=== PATIENT | male | born 1970 | race Caucasian/White ===

== ENCOUNTER 2019-10-06 13:25 | Inpatient (IN) | payer BC ==
[~2019-10-06 13:25] MED LIST: HYDROmorphone/Normal Saline 15 MG/30 ML PCA IV PRN; Naloxone 0.4 MG/ML SDV IVPUSH PRN
[2019-10-06] MEDS ORDERED: Dextrose 5%-Lactated Ringers 1,000 ML IV SCH ×2 (13:45)
[2019-10-06] MEDS ORDERED: ceFAZolin 2 GM in Premix Bag 1 BAG IV ONE (14:30)
[2019-10-06] MEDS ORDERED: metroNIDAZOLE/Normal Saline 500 MG in Premix Bag 1 BAG IV ONE (14:30)
[2019-10-06] MEDS: Sodium Chloride 0.9% 1,000 ML IV SCH ×2 (14:41→17:57)
[2019-10-06] MEDS ORDERED: fentaNYL 250 MCG/5 ML SDV ONE ×2 (14:52→15:31)
[2019-10-06] MEDS ORDERED: Dexamethasone 4 MG/ML SDV ONE (14:53)
[2019-10-06] MEDS ORDERED: Ondansetron 4 MG/2 ML SDV ONE (14:53)
[2019-10-06] MEDS ORDERED: Succinylcholine 200 MG/10 ML MDV ONE (14:53)
[2019-10-06] MEDS ORDERED: Glycopyrrolate 0.2 MG/ML 5 ML MDV ONE (14:53)
[2019-10-06] MEDS ORDERED: Neostigmine Methylsulfate 1 MG/ML 5 ML Syringe ONE (14:53)
[2019-10-06] MEDS ORDERED: Rocuronium 50 MG/5 ML Vial ONE (14:53)
[2019-10-06] MEDS ORDERED: Propofol 200 MG/20 ML SDV ONE (14:53)
[2019-10-06] MEDS ORDERED: Ropivacaine 36 ML, dexAMETHasone 8 MG, EPINEPHrine 0.4 MG, Sodium Chloride 0.9% 41.6 ML NERVRT SCH ×4 (15:00)
[2019-10-06] MEDS ORDERED: Albuterol/Ipratropium 3.0-0.5 MG/3 ML Neb Soln NEB ONE (15:00)
[2019-10-06] MEDS ORDERED: Scopolamine 1.5 MG Transdermal Patch ONE (15:30)
[2019-10-06] MEDS ORDERED: Ketorolac 60 MG/2 ML SDV ONE (15:30)
[2019-10-06] MEDS ORDERED: fentaNYL 100 MCG/2 ML SDV IVPUSH PRN (17:35)
[2019-10-06] MEDS: Acetaminophen/oxyCODONE 325-5 MG Tab PO PRN (17:56)
[2019-10-07] MEDS: Sodium Chloride 0.9% 1,000 ML IV SCH ×2 (06:25→18:33)
[2019-10-07] MEDS: Acetaminophen/oxyCODONE 325-5 MG Tab PO PRN ×2 (08:37→18:32)
[2019-10-08] MEDS: Acetaminophen/oxyCODONE 325-5 MG Tab PO PRN ×3 (05:07→19:39)
[2019-10-08] MEDS: Sodium Chloride 0.9% 1,000 ML IV SCH (07:20)
--- NOTE | 2019-10-08 10:06 | PN ---
DATE OF SERVICE: 10/08/2019 SUBJECTIVE: The patient is doing well. He is passing gas. No nausea, vomiting, shortness of breath, or chest pain. OBJECTIVE: VITAL SIGNS: Stable. GENERAL: He is afebrile. CARDIOVASCULAR: Regular rhythm and rate. RESPIRATORY: Lungs clear to auscultation bilaterally. ABDOMEN: Incision healing well. ASSESSMENT: Status post small bowel resection. PLAN: The patient is passing gas. We will give him some bowel stimulation today. No additional labs. Anticipate discharge in next 48 hours. Sree Morales MD /[id number]
[2019-10-08] MEDS: Magnesium Hydroxide 400 MG/5 ML Susp 30 ML Cup PO SCH ×2 (10:08→22:31)
[2019-10-08] MEDS: Nicotine 21 MG/24 Hr Patch TRDERM SCH (10:08)
[2019-10-08] MEDS: Docusate Sodium 100 MG Cap PO SCH ×2 (10:09→22:30)
--- NOTE | 2019-10-08 10:13 | CONS ---
DATE OF SERVICE: 10/06/2019 REFERRING PHYSICIAN: CONSULTING PHYSICIAN: Sree Morales MD REASON FOR CONSULTATION: Abdominal pain. HISTORY OF PRESENT ILLNESS: This is a patient who reports right and left upper abdominal pain which is a 4/10 worsening. This is associated with increased nausea. The patient's last bowel movement was yesterday. Modified by active smoking. PAST MEDICAL HISTORY: History of Rodriguez-en-Y gastric bypass, vitamin B deficiency, vitamin D deficiency, smoking as described above. REVIEW OF SYSTEMS: GENERAL: No specific concerns. RESPIRATORY: No recent shortness of breath. CARDIOVASCULAR: No history of myocardial infarction. GASTROINTESTINAL: As above. GENITOURINARY: No dysuria. NEUROLOGIC: No change. PSYCHIATRIC: No change. The remainder systems are reviewed and are negative. PHYSICAL EXAMINATION: GENERAL: The patient is appropriate for condition. VITAL SIGNS: Temperature 97.9, blood pressure 133/72, pulse 45, respirations 16, 98% on room air. GENERAL: The patient is resting comfortably. HEENT: Pupils are equal. NECK: Supple. LUNGS: Clear. ABDOMEN: Pain with palpation and moderate distention. No rebound. Minimal guarding. EXTREMITIES: Full range of motion. NEUROLOGIC: Oriented x3. PSYCHIATRIC: No gross depression. LABORATORY RESULTS: Show normal basic metabolic panel, normal hemogram. IMAGING DATA: I did review the CT scan which suggests an internal hernia. ASSESSMENT AND PLAN: The patient will be taken to the operating room for repair of internal hernia. The patient has had this repaired laparoscopically twice and obviously both have failed. Therefore, the patient will undergo an open internal hernia repair. We discussed risks, benefits, alternatives, and limitations including, but not limited to infection, bleeding, injury to abdominal structures, leaks, hematoma, seroma, hernia formation, cardiovascular issues, and other risks not listed here. The patient understands these risks and wishes to proceed. Sree Morales MD /[id number]
--- NOTE | 2019-10-08 10:19 | OR ---
DATE OF PROCEDURE: 10/06/2019 SURGEON: Sree Morales MD PROCEDURE: Rectus sheath block bilaterally. COMPLICATIONS: None. CHANCELLOR: None. RISKS: Risks, benefits, alternatives, and limitations including, but not limited to, infection, bleeding, and injury to abdominal structures were explained to the patient, who wished to proceed. PROCEDURE IN DETAIL: The patient was placed in supine position. Abdomen was prepped and draped. The left rectus sheath was identified using 11 megahertz ultrasound probe. The needle was advanced under direct visualization and 80% solution was injected directly inferior to the rectus muscle between the sheath. The right side was then performed in the same manner, same fashion, same technique, and in the same sequence, using the same equipment, except for different needle and syringe. The patient tolerated the procedure well. Sree Morales MD /[id number]
--- NOTE | 2019-10-08 10:35 | OR ---
DATE OF PROCEDURE: 10/06/2019 SURGEON: Sree Morales MD PROCEDURE: Repair of internal hernia by laparotomy (267151). COMPLICATION: None. TRAILER DRIVER: None. PREOPERATIVE DIAGNOSIS: Internal hernia. POSTOPERATIVE DIAGNOSIS: Internal hernia. INDICATIONS: A pleasant 49-year-old male who has had internal hernia repaired twice laparoscopic, therefore open will be required to repair this. Risks, benefits, alternatives, and limitations including, but not limited to, infection, bleeding, and injury to abdominal structures, hernia formation, cardiovascular risks, and other risks not listed here were explained to the patient. PROCEDURE IN DETAIL: The patient was placed in supine position. A midline abdominal incision was made approximately 8 cm in size. This was carried out with electrocautery down to the fascia. The peritoneum was opened sharply. No evidence of enterotomy or injury was noted. Small bowel was run in a retrograde fashion from the ileocecal valve. The internal hernia was identified in proximity to the anastomosis, and the defect itself was at the jejunojejunal anastomosis. The small bowel was dense with lymphatics, consistent with hernia; however, there is no evidence of vascular compromise. This was then reduced. The hernia defect was closed with 3-0 Vicryl in a running fashion. The remainder of the bowel was inspected. No abnormalities noted. The bowel was then inspected approximately 5 minutes later. Good vascular structure. No leaks. No abnormalities. This was then irrigated and placed back in the abdomen. The fascia was closed with #1 Vicryl in a running fashion. Subcutaneous tissue was closed with 3-0 Vicryl, and the skin was closed with afia. The patient tolerated the procedure well. Sree Morales MD /[id number]
[2019-10-09] MEDS: Acetaminophen/oxyCODONE 325-5 MG Tab PO PRN ×3 (07:12→20:58)
[2019-10-09] MEDS: Nicotine 21 MG/24 Hr Patch TRDERM SCH (08:20)
[2019-10-09] MEDS: Docusate Sodium 100 MG Cap PO SCH ×2 (08:20→20:58)
[2019-10-09] MEDS: Magnesium Hydroxide 400 MG/5 ML Susp 30 ML Cup PO SCH ×2 (08:20→20:58)
[2019-10-09] MEDS: Lactulose Soln 10 GM/15 ML 15 ML UD Cup PO SCH ×2 (11:27→20:58)
[2019-10-09] MEDS ORDERED: Bisacodyl 10 MG Supp RECTAL PRN (16:35)
[2019-10-10 00:05] VITALS: BP 115/63; PULSE 48
[2019-10-10] MEDS: Acetaminophen/oxyCODONE 325-5 MG Tab PO PRN ×2 (00:09→06:25)
--- NOTE | 2019-10-10 11:37 | DISCH ---
DISCHARGE DIAGNOSIS: Status post internal hernia repair. SUMMARY OF HOSPITAL COURSE: A pleasant, 49-year-old male, who underwent internal hernia repair. The patient did very well. His preoperative pain was immediately indicated. He had no nausea, vomiting, shortness of breath, or chest pain. He is having bowel movements. Pain is well controlled with p.o. pain medications. FOLLOWUP: With Surgery in 7 to 14 days. ACTIVITY: No lifting greater than 30 pounds x30 days. DISCHARGE MEDICATIONS: Please see MAR for further details.
--- NOTE | 2019-10-10 13:20 | PN ---
DATE OF SERVICE: 10/10/2019 SUBJECTIVE: The patient continues to do well. Pain is well controlled. No nausea, vomiting, shortness of breath, or chest pain. OBJECTIVE: VITAL SIGNS: Stable. ASSESSMENT AND PLAN: The patient is doing quite well. He will be discharged today as he was having bowel movements. His pain is well controlled. No nausea, vomiting, shortness of breath. Please see discharge summary for further details. Sree Morales MD /[id number]
== END 2019-10-10 07:50 | disposition home or self-care (01) | DRG 229 ==
LOC: JP.SDSSCHI 13:25 → JP.SDS 13:25 → EDSTATUS 13:30 → JP.MS 16:50
PROVIDERS: ADMIT Surgery; ATTEND Surgery
PROC: 0DQV0ZZ Repair Mesentery, Open Approach (ICD-10-PCS; principal; 2019-10-06)
DX: K45.8 Other specified abdominal hernia without obstruction or gangrene (principal); E53.9 Vitamin B deficiency, unspecified; E55.9 Vitamin D deficiency, unspecified; F17.210 Nicotine dependence, cigarettes, uncomplicated; Z98.84 Bariatric surgery status; Z11.59 Encounter for screening for other viral diseases; Z98.890 Other specified postprocedural states
CPT/HCPCS: 36415; 80048; 85027; 94640; A9270-GY; J0171; J0330; J0690; J1100; J1885; J2405; J2704; J2710; J2795; J3010; J3490; J7030; J7050; J7620-GY; U0002

== ENCOUNTER 2021-04-04 05:31 | Inpatient (IN) | payer OTHER ==
[2021-04-04] MEDS ORDERED: Scopolamine 1.5 MG Transdermal Patch TOP ONE (06:01)
[2021-04-04] MEDS ORDERED: Acetaminophen 500 MG Tab PO ONE (06:01)
[2021-04-04] MEDS ORDERED: Dextrose 5%-Lactated Ringers 1,000 ML IV SCH (06:15)
[2021-04-04] MEDS ORDERED: fentaNYL 250 MCG/5 ML SDV ONE (06:16)
[2021-04-04] MEDS ORDERED: Rocuronium 50 MG/5 ML Vial ONE ×2 (06:16→07:41)
[2021-04-04] MEDS ORDERED: Dexamethasone 4 MG/ML SDV ONE (06:16)
[2021-04-04] MEDS ORDERED: Midazolam 1 MG/ML 2 ML SDV ONE (06:16)
[2021-04-04] MEDS ORDERED: Ondansetron 4 MG/2 ML SDV ONE (06:16)
[2021-04-04] MEDS ORDERED: Propofol 200 MG/20 ML SDV ONE (06:16)
[2021-04-04] MEDS ORDERED: Glycopyrrolate 0.2 MG/ML 5 ML MDV ONE (06:17)
[2021-04-04] MEDS ORDERED: Meropenem 500 MG SDV ONE (06:35)
[2021-04-04] MEDS ORDERED: Bupivacaine 0.5% 50 ML MDV ONE (06:35)
[2021-04-04] MEDS ORDERED: Lidocaine 1% with EPINEPHrine 1:100,000 50 ML MDV ONE (06:35)
[2021-04-04] MEDS ORDERED: cefOXitin 2 GM in Sodium Chloride 0.9% 100 ML IV ONE (07:00)
[2021-04-04] MEDS ORDERED: cefOXitin 2 GM in Sodium Chloride 0.9% 50 ML IV ONE (07:00)
[2021-04-04] MEDS ORDERED: Ketamine 500 MG/5 ML MDV IV SCH (07:15)
[2021-04-04] MEDS ORDERED: Ketamine 18 MG in Sodium Chloride 0.9% 19.82 ML IV SCH (07:15)
[2021-04-04] MEDS ORDERED: Celecoxib 200 MG Cap PO ONE (07:30)
[2021-04-04] MEDS ORDERED: Sugammadex Sodium 200 MG/2 ML VIAL ONE (07:53)
[2021-04-04] MEDS ORDERED: HYDROmorphone/Normal Saline 6 MG/30 ML PCA Vial IV PRN ×2 (08:00→08:22)
[2021-04-04] MEDS ORDERED: Ropivacaine 38 ML, dexAMETHasone 8 MG, EPINEPHrine 0.4 MG, Sodium Chloride 0.9% 39.6 ML NERVRT SCH ×4 (08:00)
[2021-04-04] MEDS ORDERED: Naloxone 0.4 MG/ML SDV IV PRN (08:00)
[2021-04-04] MEDS ORDERED: fentaNYL 100 MCG/2 ML SDV ONE (08:03)
[2021-04-04] MEDS ORDERED: diphenhydrAMINE 25 MG Cap PO PRN (08:22)
[2021-04-04] MEDS ORDERED: Naloxone 0.4 MG/ML SDV IVPUSH PRN (08:22)
[2021-04-04] MEDS ORDERED: diphenhydrAMINE 50 MG/ML SDV IVPUSH PRN ×2 (08:22→10:00)
[2021-04-04] MEDS ORDERED: Ondansetron 4 MG/2 ML SDV IVPUSH PRN ×2 (08:22→10:00)
[2021-04-04] MEDS ORDERED: hydrOXYzine HCL 100 MG/2 ML SDV IM ONE (09:01)
[2021-04-04] MEDS ORDERED: Cyclobenzaprine 10 MG Tab PO PRN (09:43)
[2021-04-04] MEDS ORDERED: HYDROmorphone 0.5 MG/0.5 ML Syringe IVPUSH PRN (10:00)
[2021-04-04] MEDS ORDERED: Labetalol 20 MG/4 ML Syringe IVPUSH PRN (10:00)
[2021-04-04] MEDS ORDERED: HYDROmorphone 1 MG/ML Syringe IV PRN (10:00)
[2021-04-04] MEDS ORDERED: Metoclopramide 10 MG/2 ML SDV IVPUSH PRN (10:00)
[2021-04-04] MEDS ORDERED: Acetaminophen 500 MG Tab PO PRN (10:00)
[2021-04-04] MEDS ORDERED: hydrOXYzine HCL 100 MG/2 ML SDV IM PRN (10:00)
[2021-04-04] MEDS ORDERED: oxyCODONE 5 MG Tab PO PRN (10:00)
[2021-04-04] MEDS ORDERED: traMADol 50 MG Tab PO PRN (10:00)
[2021-04-04] MEDS: Dextrose 5%-Lactated Ringers 1,000 ML IV SCH ×2 (13:21→22:01)
[2021-04-04] MEDS: Acetaminophen 500 MG Tab PO SCH ×2 (13:21→22:02)
[2021-04-04] MEDS: cefOXitin 2 GM in Sodium Chloride 0.9% 50 ML IV SCH ×2 (13:21→19:26)
[2021-04-04] MEDS ORDERED: Pantoprazole 40 MG Vial IVPUSH SCH (14:00)
--- NOTE | 2021-04-04 14:18 | PCM.EKG ---
#1 Interpretation EKG Date: 04/04/21 Time: 07:10 Rhythm: Other (Sinus bradycardia) Rate (Beats/Min): 46 [place]: Normal P-Wave: Present QRS: Normal ST-T: Other (ST segment elevation secondary to early repolarization) QT: Normal Comparison: NA - No Prior EKG
[2021-04-04] MEDS ORDERED: MVI, Adult with Vitamin K 10 ML, Thiamine 200 MG, Zinc/Copper/Manganese/Selenium 1 ML i... IV SCH ×4 (16:00)
[2021-04-04] MEDS: Heparin Sodium 5,000 Units/ML Vial SUBCUT SCH (17:13)
[2021-04-04] MEDS ORDERED: Nicotine 21 MG/24 Hr Patch TRDERM SCH (19:00)
[2021-04-05] MEDS: cefOXitin 2 GM in Sodium Chloride 0.9% 50 ML IV SCH ×2 (02:28→07:56)
[2021-04-05] MEDS ORDERED: Iopamidol 612 MG/ML 50 ML SDV PO STA (04:13)
[2021-04-05] MEDS: Acetaminophen 500 MG Tab PO SCH (05:05)
[2021-04-05] MEDS: Heparin Sodium 5,000 Units/ML Vial SUBCUT SCH (05:05)
[2021-04-05] MEDS: Dextrose 5%-Lactated Ringers 1,000 ML IV SCH (05:06)
[2021-04-05] MEDS ORDERED: Dextrose 5%-Lactated Ringers 1,000 ML IV SCH (07:30)
[2021-04-05] MEDS ORDERED: CHECK SCOPALAMINE PATCH TOP SCH (09:00)
[2021-04-05] MEDS ORDERED: Celecoxib 200 MG Cap PO SCH (09:00)
[2021-04-05] MEDS ORDERED: SCOPOLAMINE PATCH CHECK TOP SCH (09:00)
[2021-04-05] MEDS ORDERED: Pantoprazole 40 MG Tab.CR PO SCH (09:00)
--- NOTE | 2021-04-05 10:09 | OR ---
DATE OF PROCEDURE: 04/04/2021 SURGEON: Florentino Davis MD PREOPERATIVE DIAGNOSIS: Partial small bowel obstruction secondary to small bowel volvulus. POSTOPERATIVE DIAGNOSES: 1. Partial small bowel obstruction secondary to small bowel volvulus. 2. Incarcerated incisional hernia. 3. Extensive intra-abdominal adhesions. OPERATIVE PROCEDURES: Exploratory laparotomy with: 1. Reduction of small bowel volvulus, closure of internal hernia (46447). 2. Repair of incarcerated incisional hernia (41296). 3. Placement of Interceed mesh to limit adhesion formation between pelvic, abdominal wall, and underlying viscera (25739). ANESTHESIA: General. SUGAR SAMPLER: Kim De La Rosa PA-C INDICATION FOR PROCEDURE: 50-year-old male presenting with a picture of a small bowel volvulus. He has postprandial crampy abdominal pain. The CT scan was suggestive of small bowel volvulus. Proceeded with a limited laparotomy and reduction of the volvulus, closure of mesenteric defects, and bowel resection as indicated. Potential risks of the procedure including bleeding, infection, injury to the underlying viscera, leaks from GI tract and anastomosis that might be required, possible recurrence of the problem over time were all reviewed, and the patient wishes to proceed. DETAILS OF PROCEDURE: The patient was taken to the operating room. After general endotracheal anesthesia was induced, Sahu catheter was inserted, and the abdomen prepped and draped. A midline incision from the umbilicus upward to roughly handsbreadth towards the xiphoid was made and carried down through the full-thickness abdominal wall. Upon entering the peritoneal cavity, the patient was noted to have some dusky-appearing bowel with some venous hypertension. At the superior aspect of the incision, the patient was also noted to have incarcerated incisional hernia at previous trocar site. This preperitoneal fat which had been incarcerated was then re-introduced and placed back into the peritoneal cavity. Inspection of the small bowel found a small bowel volvulus with a large amount of bowel rotating from a right to left direction. This was then reduced, and at that point, all the bowel appeared to be viable. There did not appear to be any areas of remaining stricturing or obstruction and the bowel wall appeared to be viable. The mesenteric defect was then closed with a running 2-0 silk stitch and some defect underneath the Rodriguez limb which was also closed with some 2-0 silk stitch in an interrupted manner. At this point, no further problems noted. The abdomen was irrigated with antibiotic- containing saline solution. Interceed mesh was then placed underneath the incision, from there went down towards the pelvic wall to limit recurrent adhesion formation. Finally, in the abdomen, the patient did have quite a bit in the way of omental adhesions, which were taken down. These were primarily related to previous incision extending somewhat above the umbilicus and from there down towards the pelvis. Following this, then the fascia was closed with #2 Vicryl stitch. This included repair of the incisional hernia at the superior end of the incision. Subcutaneous tissue was then approximated with 2 layers of 3-0 Vicryl stitch and the skin with afia. Prior to closure, the bilateral transverse abdominis plane blocks were placed and the fascia was also anesthetized with some 1% lidocaine mixed with Marcaine and the patient taken to the recovery room in satisfactory condition. Physician clinical trial assistant, Kim De La Rosa, played an essential role in assisting in this case helping to position the patient, retract any structures as needed, as well as suturing and cutting sutures when indicated. Her presence improved patient safety and decreased operative time. Florentino Davis MD /[id number]
--- NOTE | 2021-04-05 10:18 | CR ---
[facility] HISTORY: Postbariatric surgery/revision FINDINGS: Patient swallowed water-soluble contrast. Upright views of the abdomen show no evidence of extravasation or obstruction. IMPRESSION: Status post bariatric surgery/revision No extravasation or obstruction seen
--- NOTE | 2021-04-05 10:33 | DISCH ---
ADMISSION DIAGNOSES: 1. Partial small bowel obstruction. 2. SP Rodriguez-en-Y gastric bypass surgery. 3. Unspecified surgical malabsorption. 4. B12 deficiency. 5. Diabetes type 2 controlled with diet and exercise. 6. Hypertension which resolved with weight loss. DISCHARGE DIAGNOSES: Exploratory laparotomy with: 1. Reduction of small bowel volvulus and closure of internal hernia. 2. Repair of incarcerated incisional hernia. 3. Placement of Interceed mesh. POSTOPERATIVE DIAGNOSES: 1. Partial small bowel obstruction secondary to small bowel volvulus. 2. Incarcerated incisional (trocar site) hernia. 3. Extensive abdominal adhesions. Date of procedure 04/04/2021. Surgeon: Florentino Davis MD. HISTORY: Abiel is a 50-year-old male with postprandial abdominal pain and after preoperative evaluation and discussion of possible risks and possible complications, he wished to proceed with surgical procedure. HOSPITAL COURSE: Abiel had his surgery on 04/04/2021. He had no operative complications. On postoperative day #1, he was able to be discharged to home without any complications. PHYSICAL EXAMINATION: GENERAL: Abiel Walsh is a 50-year-old male, height is 5 feet 3 inches, weight 169 pounds. BMI is 29.9. TPR is 97.7, 54, 16. Blood pressure 128/67. HEENT: Negative. NECK: Supple. HEART: Regular rate and rhythm. LUNGS: Clear. ABDOMEN: Aquacel dressings on. Abdominal binder is on. EXTREMITIES: Without peripheral edema. DISPOSITION: Discharged home. CONDITION: Stable and improving. FOLLOWUP: Followup appointment with Kim De La Rosa PA-C, on 04/13/2021 at 10 a.m. at [facility]. DISCHARGE MEDICATIONS: New prescription: 1. Celebrex 200 mg p.o. b.i.d., #28. 2. Tramadol 50 mg p.o. q.6 hours p.r.n. pain, #18. 3. Tylenol 1000 mg p.o. q.8 hours. He is to resume his home medications: 1. Vitamin A 10,000 units p.o. daily. 2. Multivitamin 1 chewable b.i.d. 3. Magnesium 400 mg at bedtime. 4. Vitamin C 1 p.o. daily. 5. Vitamin B complex 1 daily. 6. Vitamin B12 1000 mcg sublingual daily. 7. Calcium citrate 1 p.o. b.i.d. DIET: Step 4 gastric bypass diet. Drink 8 to 10 glasses of water a day. ACTIVITY: No lifting greater than 10 pounds for 6 weeks. OTHER ACTIVITY: Walk 6 times daily inside your home. Driving: Do not drive for 1 week or while on tramadol pain medication. DISCHARGE INSTRUCTIONS: 1. Shower/bathing: May shower. Keep operative site clean and dry. 2. Wound incision instruction: Take off Aquacel dressing on Friday04/07/2021. 3. Wear abdominal binder for 6 weeks and then as needed. 4. Notify provider if any fever, increased pain, swelling, redness, drainage, nausea, or vomiting. SPECIAL INSTRUCTIONS: 1. Use incentive spirometer 10 times every hour while awake. 2. Walk 3 minutes for every hour your are in the car on the way home. /[id number]
[2021-04-05 10:39] VITALS: BP 132/64; PULSE 56
[2021-04-05] MEDS ORDERED: Nicotine 21 MG/24 Hr Patch TRDERM SCH (16:00)
[2021-04-06] MEDS ORDERED: Cyanocobalamin (Vitamin B12) 1,000 MCG/ML SDV IM ONE (09:00)
== END 2021-04-05 12:00 | disposition home or self-care (01) | DRG 329 ==
LOC: JP.SDSSCHI 05:31 → JP.SDS 05:31 → JP.MS 08:30 → EDSTATUS 09:33
PROVIDERS: ADMIT Surgery; ATTEND Surgery
PROC: 0DS80ZZ Reposition Small Intestine, Open Approach (ICD-10-PCS; principal; 2021-04-04)
PROC: 0WQF0ZZ Repair Abdominal Wall, Open Approach (ICD-10-PCS; 2021-04-04)
PROC: 3E0M05Z Introduction of Adhesion Barrier into Peritoneal Cavity, Open Approach (ICD-10-PCS; 2021-04-04)
DX: K95.89 Other complications of other bariatric procedure (principal); K56.2 Volvulus; K43.0 Incisional hernia with obstruction, without gangrene; I42.1 Obstructive hypertrophic cardiomyopathy; K91.2 Postsurgical malabsorption, not elsewhere classified; K56.51 Intestinal adhesions [bands], with partial obstruction; E83.42 Hypomagnesemia; E53.8 Deficiency of other specified B group vitamins; I10 Essential (primary) hypertension; Z88.6 Allergy status to analgesic agent; Z79.899 Other long term (current) drug therapy
CPT/HCPCS: 36415; 74240; 74240-26; 80053; 83735; 83880; 84100; 85025; 93005; A9270-GY; C9113; J0171; J0694; J1100; J1170; J1644; J2020; J2185; J2250; J2405; J2704; J2795; J3010; J3410; J3411; J3490; J7121; Q9967

== ENCOUNTER 2023-01-21 07:40 | Inpatient (IN) | payer OTHER ==
[~2023-01-21 07:40] MED LIST changes: +Bupivacaine 0.5% 50 ML MDV ONE; -HYDROmorphone/Normal Saline 15 MG/30 ML PCA IV PRN; +Lidocaine 1% with EPINEPHrine 1:100,000 50 ML MDV ONE; +Meropenem 500 MG SDV ONE; -Naloxone 0.4 MG/ML SDV IVPUSH PRN
[2023-01-21] MEDS ORDERED: Dexamethasone 4 MG/ML SDV ONE (07:52)
[2023-01-21] MEDS ORDERED: Neostigmine Methylsulfate 1 MG/ML 5 ML Syringe ONE (07:52)
[2023-01-21] MEDS ORDERED: Rocuronium 50 MG/5 ML Vial ONE ×2 (07:52→13:22)
[2023-01-21] MEDS ORDERED: Ondansetron 4 MG/2 ML SDV ONE (07:52)
[2023-01-21] MEDS ORDERED: Propofol 200 MG/20 ML SDV ONE (07:52)
[2023-01-21] MEDS ORDERED: Glycopyrrolate 0.2 MG/ML 5 ML MDV ONE (07:52)
[2023-01-21] MEDS ORDERED: fentaNYL 250 MCG/5 ML SDV ONE ×2 (07:59→13:24)
[2023-01-21 08:20] LABS: HEMOGLOBIN A1C 5.5 % (4.5-6.2)
[2023-01-21] MEDS ORDERED: Scopolamine 1.5 MG Transdermal Patch TOP PRN (08:30)
[2023-01-21] MEDS ORDERED: Celecoxib 200 MG Cap PO PRN (08:30)
[2023-01-21 08:39] LABS: MAGNESIUM 1.9 mg/dL (1.8-2.4); PHOSPHORUS 4.5 mg/dL (2.5-4.9); TSH ULTRASENSITIVE 2.636 uIU/mL (0.358-3.740)
[2023-01-21] MEDS ORDERED: Dextrose 5%-Lactated Ringers 1,000 ML IV SCH (08:45)
[2023-01-21] MEDS ORDERED: HYDROmorphone/Normal Saline 6 MG/30 ML PCA Vial IV PRN (08:54)
[2023-01-21] MEDS ORDERED: Naloxone 0.4 MG/ML SDV IV PRN (09:00)
[2023-01-21] MEDS ORDERED: ceFAZolin 2 GM in Premix Bag 1 BAG IV ONE (09:15)
[2023-01-21] MEDS ORDERED: Ropivacaine 36 ML, dexAMETHasone 8 MG, EPINEPHrine 0.4 MG, Sodium Chloride 0.9% 41.6 ML NERVRT SCH ×4 (09:45)
[2023-01-21] MEDS ORDERED: Ketamine 17 MG in Sodium Chloride 0.9% 19.83 ML IV SCH (09:45)
[2023-01-21] MEDS ORDERED: Ketamine 500 MG/5 ML MDV IV SCH (09:45)
[2023-01-21] MEDS ORDERED: Linezolid 600 MG/300 ML Premix Bag IRR ONE (13:17)
[2023-01-21] MEDS ORDERED: Lactated Ringers 1,000 ML ONE (13:20)
[2023-01-21] MEDS ORDERED: Cyclobenzaprine 10 MG Tab PO PRN (15:47)
[2023-01-21] MEDS ORDERED: diphenhydrAMINE 50 MG/ML SDV IVPUSH PRN (16:00)
[2023-01-21] MEDS ORDERED: hydrOXYzine HCL 100 MG/2 ML SDV IM PRN (16:00)
[2023-01-21] MEDS ORDERED: Acetaminophen 500 MG Tab PO PRN (16:00)
[2023-01-21] MEDS ORDERED: Labetalol 20 MG/4 ML Syringe IVPUSH PRN (16:00)
[2023-01-21] MEDS ORDERED: Metoclopramide 10 MG/2 ML SDV IVPUSH PRN (16:00)
[2023-01-21] MEDS ORDERED: Ondansetron 4 MG/2 ML SDV IVPUSH PRN (16:00)
[2023-01-21] MEDS: Dextrose 5%-Lactated Ringers 1,000 ML IV SCH ×2 (16:41→23:33)
[2023-01-21] MEDS ORDERED: Pantoprazole 40 MG Vial IVPUSH SCH (17:00)
[2023-01-21] MEDS: cefOXitin 2 GM in Sodium Chloride 0.9% 50 ML IV SCH ×2 (17:20→23:32)
[2023-01-21] MEDS: SCOPOLAMINE PATCH CHECK TOP SCH (17:20)
[2023-01-21] MEDS ORDERED: MVI, Adult with Vitamin K 10 ML, Thiamine 200 MG, Zinc/Copper/Manganese/Selenium 1 ML i... IV SCH ×4 (18:00)
[2023-01-21] MEDS: Heparin Sodium 5,000 Units/ML Vial SUBCUT SCH (20:56)
[2023-01-21] MEDS: Acetaminophen 1,000 MG in Premix Bag 1 BAG IV SCH (21:02)
[2023-01-22] MEDS ORDERED: Iopamidol 612 MG/ML 30 ML SDV PO ONE (04:00)
[2023-01-22 04:22] LABS: BASOPHILS PERCENT AUTO 0.1 % (0.1-1.3); HEMATOCRIT 35.9 % (38.4-49.7); HEMOGLOBIN 11.9 g/dL (12.9-16.9); IMMATURE GRAN ABSOLUTE AUTO 0.07 K/uL (0.00-0.23); IMMATURE GRAN PERCENT AUTO 0.4 % (0.0-0.7); LYMPHOCYTES ABSOLUTE AUTO 1.38 K/uL (0.8-3.3); LYMPHOCYTES PERCENT AUTO 7.5 % (11.4-47.7); MEAN CORPUSCULAR HGB CONC 33.1 g/dL (31.6-35.5); MEAN CORPUSCULAR VOLUME 93.5 fL (81.4-99.0); MONOCYTES ABSOLUTE AUTO 0.95 K/uL (0.20-0.90); MONOCYTES PERCENT AUTO 5.2 % (3.3-12.6); NEUTROPHILS ABSOLUTE AUTO 15.94 K/uL (1.0-7.6); NEUTROPHILS PERCENT AUTO 86.8 % (40.0-78.1); PLATELET COUNT,PLT 224 K/uL (130-375); RED BLOOD CELL COUNT 3.84 M/uL (4.14-5.76); WHITE BLOOD CELL COUNT,WBC 18.4 K/uL (3.2-11.0)
[2023-01-22] MEDS ORDERED: Lactated Ringers 500 ML IV SCH (04:30)
[2023-01-22 04:54] LABS: A/G RATIO 0.9 (1.2-2.2); ALANINE AMINOTRANSFERASE,ALT 16 U/L (12-78); ALBUMIN 2.9 g/dL (3.4-5.0); ALKALINE PHOSPHATASE 76 U/L (46-116); ASPARTATE AMNIOTRANSFERASE,AST 20 U/L (15-37); BASOPHILS ABSOLUTE AUTO 0.02 K/uL (0.00-0.10); BILIRUBIN TOTAL 0.4 mg/dL (0.2-1.0); BLOOD UREA NITROGEN,BUN 8 mg/dL (7-18); CALCIUM 8.2 mg/dL (8.5-10.1); CARBON DIOXIDE,CO2 26 mmol/L (21-32); CHLORIDE,CL 104 mmol/L (100-108); CREATININE 0.8 mg/dL (0.8-1.3); EST CRCL DRUG DOSING (CG) 85.94 mL/min; ESTIMATED GFR 106 mL/min (>60); GLUCOSE RANDOM 192 mg/dL (74-106); MAGNESIUM 1.6 mg/dL (1.8-2.4); PHOSPHORUS 4.2 mg/dL (2.5-4.9); POTASSIUM,K 4.4 mmol/L (3.6-5.2); PRO B-TYPE NATRIUR PEPT,BNPPRO 292 pg/mL (5-125); SODIUM,NA 138 mmol/L (140-148)
[2023-01-22 05:00] LABS: ANION GAP 12.4 mmol/L (5.0-14.0)
[2023-01-22] MEDS: Acetaminophen 1,000 MG in Premix Bag 1 BAG IV SCH ×2 (05:07→13:48)
[2023-01-22] MEDS: cefOXitin 2 GM in Sodium Chloride 0.9% 50 ML IV SCH ×4 (05:30→23:37)
[2023-01-22] MEDS: Dextrose 5%-Lactated Ringers 1,000 ML IV SCH (07:12)
[2023-01-22] MEDS: Levothyroxine 100 MCG Tab PO SCH (07:15)
[2023-01-22] MEDS ORDERED: Lactated Ringers 500 ML IV ONE (08:00)
[2023-01-22] MEDS: Heparin Sodium 5,000 Units/ML Vial SUBCUT SCH ×2 (08:56→21:26)
[2023-01-22] MEDS: Nicotine 21 MG/24 Hr Patch TRDERM SCH (08:57)
[2023-01-22] MEDS: Celecoxib 200 MG Cap PO SCH ×2 (08:58→21:27)
[2023-01-22] MEDS: SCOPOLAMINE PATCH CHECK TOP SCH (08:59)
[2023-01-22] MEDS: Magnesium Sulfate/Water 2 GM in Premix Bag 1 BAG IV SCH ×3 (11:01→21:28)
[2023-01-22] MEDS: Tamsulosin 0.4 MG Cap.ER PO SCH ×2 (15:42→21:27)
[2023-01-22] MEDS: oxyCODONE 5 MG Tab PO PRN ×2 (15:43→19:46)
[2023-01-22] MEDS: Pantoprazole 40 MG Delayed-Release Granules 1 Packet PO SCH (16:55)
[2023-01-22] MEDS ORDERED: MVI, Adult with Vitamin K 10 ML, Thiamine 200 MG, Zinc/Copper/Manganese/Selenium 1 ML i... IV SCH ×4 (18:00)
[2023-01-22 18:42] LABS: PARATHYROID HORMONE,INTACT 39 pg/mL (15-65)
[2023-01-22] MEDS: Acetaminophen 500 MG Tab PO SCH (21:29)
[2023-01-23] MEDS: Dextrose 5%-Lactated Ringers 1,000 ML IV SCH ×2 (04:12→23:00)
[2023-01-23] MEDS: Magnesium Sulfate/Water 2 GM in Premix Bag 1 BAG IV SCH ×4 (04:13→21:40)
[2023-01-23 04:20] LABS: HEMATOCRIT 31.8 % (38.4-49.7); HEMOGLOBIN 10.5 g/dL (12.9-16.9); MEAN CORPUSCULAR HEMOGLOBIN 31.3 pg (31.6-35.5); MEAN CORPUSCULAR VOLUME 94.6 fL (81.4-99.0); RED BLOOD CELL COUNT 3.36 M/uL (4.14-5.76); WHITE BLOOD CELL COUNT,WBC 8.4 K/uL (3.2-11.0)
[2023-01-23 04:47] LABS: ALANINE AMINOTRANSFERASE,ALT 14 U/L (12-78); ALBUMIN 2.8 g/dL (3.4-5.0); ALKALINE PHOSPHATASE 67 U/L (46-116); ANION GAP 6.4 mmol/L (5.0-14.0); ASPARTATE AMNIOTRANSFERASE,AST 22 U/L (15-37); BILIRUBIN TOTAL 0.3 mg/dL (0.2-1.0); BLOOD UREA NITROGEN,BUN 4 mg/dL (7-18); CALCIUM 7.9 mg/dL (8.5-10.1); CARBON DIOXIDE,CO2 28 mmol/L (21-32); CHLORIDE,CL 107 mmol/L (100-108); CREATININE 0.7 mg/dL (0.8-1.3); EST CRCL DRUG DOSING (CG) 98.22 mL/min; ESTIMATED GFR 110 mL/min (>60); GLUCOSE RANDOM 103 mg/dL (74-106); PHOSPHORUS 3.3 mg/dL (2.5-4.9); POTASSIUM,K 3.9 mmol/L (3.6-5.2); PROTEIN TOTAL,TP 5.6 g/dL (6.4-8.2); SODIUM,NA 141 mmol/L (140-148)
[2023-01-23] MEDS: Acetaminophen 500 MG Tab PO SCH ×3 (05:32→21:40)
[2023-01-23] MEDS ORDERED: hydrOXYzine HCl 25 MG Tab PO PRN (07:48)
[2023-01-23] MEDS: oxyCODONE 5 MG Tab PO PRN ×4 (08:19→22:48)
[2023-01-23] MEDS: Levothyroxine 100 MCG Tab PO SCH (08:24)
[2023-01-23] MEDS: Tamsulosin 0.4 MG Cap.ER PO SCH ×2 (08:24→17:10)
[2023-01-23] MEDS: Celecoxib 200 MG Cap PO SCH ×2 (08:25→20:07)
[2023-01-23] MEDS: Docusate Sodium 100 MG Cap PO SCH ×2 (08:26→20:08)
[2023-01-23] MEDS: Bisacodyl 5 MG Tab PO SCH ×2 (08:26→20:07)
[2023-01-23] MEDS: Nicotine 21 MG/24 Hr Patch TRDERM SCH (08:27)
[2023-01-23] MEDS: SCOPOLAMINE PATCH CHECK TOP SCH (08:28)
[2023-01-23] MEDS: Heparin Sodium 5,000 Units/ML Vial SUBCUT SCH ×2 (08:31→20:07)
[2023-01-23] MEDS ORDERED: Cyanocobalamin (Vitamin B12) 1,000 MCG/ML SDV IM ONE (09:00)
[2023-01-23] MEDS: Cyclobenzaprine 10 MG Tab PO SCH ×2 (13:02→21:40)
[2023-01-23] MEDS: Pantoprazole 40 MG Delayed-Release Granules 1 Packet PO SCH (17:10)
[2023-01-24 04:20] LABS: HEMATOCRIT 31.5 % (38.4-49.7); HEMOGLOBIN 10.3 g/dL (12.9-16.9); MEAN CORPUSCULAR HEMOGLOBIN 30.7 pg (31.6-35.5); MEAN CORPUSCULAR HGB CONC 32.7 g/dL (31.6-35.5); RED BLOOD CELL COUNT 3.35 M/uL (4.14-5.76); WHITE BLOOD CELL COUNT,WBC 6.6 K/uL (3.2-11.0)
[2023-01-24 04:44] LABS: ALANINE AMINOTRANSFERASE,ALT 14 U/L (12-78); ALBUMIN 2.7 g/dL (3.4-5.0); ALKALINE PHOSPHATASE 71 U/L (46-116); ANION GAP 7.6 mmol/L (5.0-14.0); ASPARTATE AMNIOTRANSFERASE,AST 26 U/L (15-37); BILIRUBIN TOTAL 0.4 mg/dL (0.2-1.0); BLOOD UREA NITROGEN,BUN 5 mg/dL (7-18); CALCIUM 7.9 mg/dL (8.5-10.1); CARBON DIOXIDE,CO2 29 mmol/L (21-32); CHLORIDE,CL 106 mmol/L (100-108); CREATININE 0.8 mg/dL (0.8-1.3); EST CRCL DRUG DOSING (CG) 85.94 mL/min; ESTIMATED GFR 106 mL/min (>60); GLUCOSE RANDOM 93 mg/dL (74-106); PHOSPHORUS 4.5 mg/dL (2.5-4.9); PROTEIN TOTAL,TP 5.5 g/dL (6.4-8.2); SODIUM,NA 143 mmol/L (140-148)
[2023-01-24] MEDS: Magnesium Sulfate/Water 2 GM in Premix Bag 1 BAG IV SCH (04:58)
[2023-01-24] MEDS: oxyCODONE 5 MG Tab PO PRN ×2 (04:58→09:08)
[2023-01-24] MEDS: Cyclobenzaprine 10 MG Tab PO SCH (04:59)
[2023-01-24] MEDS: Acetaminophen 500 MG Tab PO SCH (04:59)
[2023-01-24 05:00] VITALS: BP 141/69; PULSE 53
[2023-01-24] MEDS ORDERED: Magnesium Hydroxide 400 MG/5 ML Susp 30 ML Cup PO ONE (09:00)
[2023-01-24] MEDS: Celecoxib 200 MG Cap PO SCH (09:04)
[2023-01-24] MEDS: Levothyroxine 100 MCG Tab PO SCH (09:04)
[2023-01-24] MEDS: Docusate Sodium 100 MG Cap PO SCH (09:05)
[2023-01-24] MEDS: Bisacodyl 5 MG Tab PO SCH (09:05)
[2023-01-24] MEDS: Tamsulosin 0.4 MG Cap.ER PO SCH (09:05)
[2023-01-24] MEDS: Nicotine 21 MG/24 Hr Patch TRDERM SCH (09:08)
[2023-01-24] MEDS: Heparin Sodium 5,000 Units/ML Vial SUBCUT SCH (09:12)
== END 2023-01-24 09:45 | disposition home or self-care (01) | DRG 328 ==
LOC: JP.SDS 07:40 → JP.2SS 14:46
PROVIDERS: ADMIT Surgery; ATTEND Surgery
PROC: 3E0M05Z Introduction of Adhesion Barrier into Peritoneal Cavity, Open Approach (ICD-10-PCS; 2023-01-21)
PROC: 0DBW0ZX Excision of Peritoneum, Open Approach, Diagnostic (ICD-10-PCS; principal; 2023-01-21 09:30)
PROC: 0WUF0JZ Supplement Abdominal Wall with Synthetic Substitute, Open Approach (ICD-10-PCS; principal; 2023-01-21 09:30)
PROC: 0D160ZA Bypass Stomach to Jejunum, Open Approach (ICD-10-PCS; principal; 2023-01-21 09:30)
PROC: 0DT80ZZ Resection of Small Intestine, Open Approach (ICD-10-PCS; principal; 2023-01-21 09:30)
DX: K43.0 Incisional hernia with obstruction, without gangrene (principal); K66.8 Other specified disorders of peritoneum; E11.9 Type 2 diabetes mellitus without complications; I10 Essential (primary) hypertension; E66.9 Obesity, unspecified; G47.33 Obstructive sleep apnea (adult) (pediatric); G89.29 Other chronic pain; M10.9 Gout, unspecified; M54.9 Dorsalgia, unspecified; G43.909 Migraine, unspecified, not intractable, without status migrainosus; E03.9 Hypothyroidism, unspecified; D50.9 Iron deficiency anemia, unspecified; F17.210 Nicotine dependence, cigarettes, uncomplicated; Z98.890 Other specified postprocedural states; Z98.84 Bariatric surgery status; Z79.899 Other long term (current) drug therapy; Z86.73 Personal history of transient ischemic attack (TIA), and cerebral infarction without residual deficits; Z88.6 Allergy status to analgesic agent; Z68.27 Body mass index [BMI] 27.0-27.9, adult
CPT/HCPCS: 36415; 74240; 74240-26; 80053; 83036; 83735; 83880; 83970; 84100; 84443; 85025; 85027; 88302; 88305; 88307; 88341; 88342; A9270-GY; C1713; C1781; C9113; J0131; J0171; J0690; J0694; J1100; J1170; J1644; J2020; J2185; J2405; J2704; J2710; J2795; J3010; J3410; J3411; J3420; J3475; J3490; J7120; J7121

== ENCOUNTER 2023-01-30 02:50 | Inpatient (IN) | payer OTHER ==
[2023-01-30] MEDS: Sodium Chloride 0.9% 10 ML Syringe FLUSH PRN ×2 (03:29→03:56)
[2023-01-30 03:30] LABS: BASOPHILS ABSOLUTE AUTO 0.03 K/uL (0.00-0.10); BASOPHILS PERCENT AUTO 0.3 % (0.1-1.3); EOSINOPHILS ABSOLUTE AUTO 0.15 K/uL (0.00-0.40); EOSINOPHILS PERCENT AUTO 1.3 % (0.0-5.4); HEMATOCRIT 40.3 % (38.4-49.7); HEMOGLOBIN 13.7 g/dL (12.9-16.9); IMMATURE GRAN ABSOLUTE AUTO 0.04 K/uL (0.00-0.23); IMMATURE GRAN PERCENT AUTO 0.3 % (0.0-0.7); LYMPHOCYTES ABSOLUTE AUTO 1.65 K/uL (0.8-3.3); MEAN CORPUSCULAR HEMOGLOBIN 31.1 pg (31.6-35.5); MEAN CORPUSCULAR VOLUME 91.6 fL (81.4-99.0); MONOCYTES ABSOLUTE AUTO 0.77 K/uL (0.20-0.90); MONOCYTES PERCENT AUTO 6.6 % (3.3-12.6); NEUTROPHILS ABSOLUTE AUTO 9.11 K/uL (1.0-7.6); NEUTROPHILS PERCENT AUTO 77.5 % (40.0-78.1); PLATELET COUNT,PLT 326 K/uL (130-375); WHITE BLOOD CELL COUNT,WBC 11.8 K/uL (3.2-11.0)
[2023-01-30] MEDS ORDERED: Lactated Ringers 1,000 ML IV SCH ×2 (03:30→12:15)
[2023-01-30] MEDS ORDERED: Iopamidol 612 MG/ML 100 ML Bottle IV STA (03:44)
[2023-01-30] MEDS ORDERED: Sodium Chloride 0.9% 10 ML Syringe FLUSH STA (03:44)
[2023-01-30] MEDS ORDERED: Sodium Chloride 0.9% 50 ML IV STA (03:44)
[2023-01-30 03:51] LABS: A/G RATIO 0.9 (1.2-2.2); ALANINE AMINOTRANSFERASE,ALT 46 U/L (12-78); ALBUMIN 3.4 g/dL (3.4-5.0); ALKALINE PHOSPHATASE 106 U/L (46-116); ASPARTATE AMNIOTRANSFERASE,AST 49 U/L (15-37); BILIRUBIN TOTAL 0.3 mg/dL (0.2-1.0); BLOOD UREA NITROGEN,BUN 9 mg/dL (7-18); CALCIUM 8.9 mg/dL (8.5-10.1); CARBON DIOXIDE,CO2 25 mmol/L (21-32); CHLORIDE,CL 100 mmol/L (100-108); CREATININE 0.7 mg/dL (0.8-1.3); ESTIMATED GFR 110 mL/min (>60); GLUCOSE RANDOM 109 mg/dL (74-106); POTASSIUM,K 4.6 mmol/L (3.6-5.2); PROTEIN TOTAL,TP 7.4 g/dL (6.4-8.2); SODIUM,NA 136 mmol/L (140-148)
[2023-01-30 03:52] LABS: ANION GAP 15.6 mmol/L (5.0-14.0)
[2023-01-30] MEDS ORDERED: Piperacillin/Tazobactam 4.5 GM in Sodium Chloride 0.9% 50 ML IV ONE (04:55)
[2023-01-30] MEDS ORDERED: Sodium Chloride 0.9% 50 ML ONE (05:02)
[2023-01-30] MEDS ORDERED: Bupivacaine 0.5%/EPINEPHrine 1:200,000 50 ML MDV ONE (05:45)
[2023-01-30] MEDS ORDERED: Meropenem 500 MG SDV ONE (05:50)
[2023-01-30] MEDS ORDERED: Glycopyrrolate 0.2 MG/ML 5 ML MDV ONE (05:55)
[2023-01-30] MEDS ORDERED: Rocuronium 50 MG/5 ML Vial ONE ×2 (05:55→07:30)
[2023-01-30] MEDS ORDERED: Propofol 200 MG/20 ML SDV ONE (05:55)
[2023-01-30] MEDS ORDERED: fentaNYL 250 MCG/5 ML SDV ONE ×2 (05:55→07:38)
[2023-01-30] MEDS ORDERED: Ondansetron 4 MG/2 ML SDV ONE (05:55)
[2023-01-30] MEDS ORDERED: Succinylcholine 200 MG/10 ML MDV ONE (05:55)
[2023-01-30] MEDS ORDERED: Neostigmine Methylsulfate 1 MG/ML 5 ML Syringe ONE (05:55)
[2023-01-30] MEDS ORDERED: Dexamethasone 4 MG/ML SDV ONE (05:55)
[2023-01-30] MEDS ORDERED: MVI, Adult with Vitamin K 10 ML in Sodium Chloride 0.9% 1,000 ML IV ONE ×4 (06:20→10:00)
[2023-01-30] MEDS ORDERED: Pantoprazole 40 MG in Sodium Chloride 0.9% 100 ML IV SCH (06:30)
[2023-01-30] MEDS ORDERED: Folic Acid 50 MG/10 ML MDV IV SCH (06:30)
[2023-01-30] MEDS ORDERED: Thiamine 100 MG in Sodium Chloride 0.9% 100 ML IV SCH (06:30)
[2023-01-30] MEDS ORDERED: Lactated Ringers 1,000 ML ONE (07:41)
[2023-01-30] MEDS ORDERED: Naloxone 0.4 MG/ML SDV IVPUSH PRN (10:04)
[2023-01-30] MEDS ORDERED: Ondansetron 4 MG/2 ML SDV IVPUSH PRN ×2 (10:04→10:15)
[2023-01-30] MEDS ORDERED: diphenhydrAMINE 50 MG/ML SDV IVPUSH PRN (10:04)
[2023-01-30] MEDS ORDERED: diphenhydrAMINE 25 MG Cap PO PRN (10:04)
[2023-01-30] MEDS: HYDROmorphone/Normal Saline 6 MG/30 ML PCA Vial IV PRN (10:12)
[2023-01-30] MEDS ORDERED: Piperacillin/Tazobactam/Dext 3.375 GM in Premix Bag 1 BAG IV SCH (11:30)
[2023-01-30] MEDS ORDERED: Lactated Ringers 1,000 ML IV ONE (13:15)
[2023-01-30] MEDS: Thiamine 100 MG in Sodium Chloride 0.9% 100 ML IV SCH (13:15)
[2023-01-30] MEDS: Acetaminophen 1,000 MG in Premix Bag 1 BAG IV SCH ×2 (13:57→18:29)
[2023-01-30] MEDS: Dextrose 5%-Lactated Ringers 1,000 ML IV SCH (15:23)
[2023-01-30] MEDS: Piperacillin/Tazobactam/Dext 3.375 GM in Premix Bag 1 BAG IV SCH (20:05)
[2023-01-30] MEDS ORDERED: Nicotine 14 MG/24 Hr Patch TRDERM SCH (20:15)
[2023-01-31] MEDS: Dextrose 5%-Lactated Ringers 1,000 ML IV SCH ×2 (00:55→13:45)
[2023-01-31] MEDS: Piperacillin/Tazobactam/Dext 3.375 GM in Premix Bag 1 BAG IV SCH ×4 (02:14→20:52)
[2023-01-31] MEDS: Acetaminophen 1,000 MG in Premix Bag 1 BAG IV SCH ×3 (03:07→20:22)
[2023-01-31 04:57] LABS: HEMATOCRIT 35.2 % (38.4-49.7); HEMOGLOBIN 11.6 g/dL (12.9-16.9); MEAN CORPUSCULAR HEMOGLOBIN 30.4 pg (31.6-35.5); MEAN CORPUSCULAR VOLUME 92.4 fL (81.4-99.0); RED BLOOD CELL COUNT 3.81 M/uL (4.14-5.76); WHITE BLOOD CELL COUNT,WBC 8.2 K/uL (3.2-11.0)
[2023-01-31 05:16] LABS: A/G RATIO 0.8 (1.2-2.2); ALANINE AMINOTRANSFERASE,ALT 22 U/L (12-78); ALBUMIN 2.5 g/dL (3.4-5.0); ALKALINE PHOSPHATASE 69 U/L (46-116); ASPARTATE AMNIOTRANSFERASE,AST 24 U/L (15-37); BILIRUBIN TOTAL 0.4 mg/dL (0.2-1.0); BLOOD UREA NITROGEN,BUN 7 mg/dL (7-18); CARBON DIOXIDE,CO2 26 mmol/L (21-32); CHLORIDE,CL 103 mmol/L (100-108); CREATININE 0.7 mg/dL (0.8-1.3); EST CRCL DRUG DOSING (CG) 98.22 mL/min; ESTIMATED GFR 110 mL/min (>60); GLUCOSE RANDOM 90 mg/dL (74-106); MAGNESIUM 1.6 mg/dL (1.8-2.4); PHOSPHORUS 4.4 mg/dL (2.5-4.9); POTASSIUM,K 4.1 mmol/L (3.6-5.2); PROTEIN TOTAL,TP 5.7 g/dL (6.4-8.2); SODIUM,NA 138 mmol/L (140-148)
[2023-01-31 05:22] LABS: ANION GAP 13.1 mmol/L (5.0-14.0)
[2023-01-31] MEDS: Pantoprazole 40 MG Vial IV SCH (06:02)
[2023-01-31] MEDS: Folic Acid 1 MG in Sodium Chloride 0.9% 50 ML IV SCH (08:54)
[2023-01-31] MEDS: Thiamine 100 MG in Sodium Chloride 0.9% 100 ML IV SCH (09:34)
[2023-01-31] MEDS: Magnesium Sulfate/Water 2 GM in Premix Bag 1 BAG IV SCH ×3 (10:12→21:39)
[2023-01-31] MEDS ORDERED: Iopamidol 612 MG/ML 30 ML SDV PO ONE (13:09)
[2023-01-31] MEDS ORDERED: Enoxaparin 40 MG/0.4 ML Syringe SUBCUT SCH (16:00)
[2023-01-31] MEDS: Enoxaparin 30 MG/0.3 ML Syringe SUBCUT SCH (16:59)
[2023-01-31] MEDS: HYDROmorphone/Normal Saline 6 MG/30 ML PCA Vial IV PRN (18:35)
[2023-01-31] MEDS: Nicotine 14 MG/24 Hr Patch TRDERM SCH (21:37)
[2023-02-01] MEDS: Dextrose 5%-Lactated Ringers 1,000 ML IV SCH ×2 (01:04→13:43)
[2023-02-01] MEDS: Piperacillin/Tazobactam/Dext 3.375 GM in Premix Bag 1 BAG IV SCH ×4 (02:35→19:16)
[2023-02-01] MEDS: Acetaminophen 1,000 MG in Premix Bag 1 BAG IV SCH ×2 (03:22→11:46)
[2023-02-01] MEDS: Magnesium Sulfate/Water 2 GM in Premix Bag 1 BAG IV SCH ×4 (03:47→21:44)
[2023-02-01] MEDS: Pantoprazole 40 MG Vial IV SCH (05:43)
[2023-02-01 05:44] LABS: HEMATOCRIT 33.9 % (38.4-49.7); HEMOGLOBIN 11.2 g/dL (12.9-16.9); MEAN CORPUSCULAR HEMOGLOBIN 30.6 pg (31.6-35.5); MEAN CORPUSCULAR VOLUME 92.6 fL (81.4-99.0); RED BLOOD CELL COUNT 3.66 M/uL (4.14-5.76)
[2023-02-01 06:05] LABS: A/G RATIO 0.7 (1.2-2.2); ALANINE AMINOTRANSFERASE,ALT 18 U/L (12-78); ALBUMIN 2.5 g/dL (3.4-5.0); ALKALINE PHOSPHATASE 66 U/L (46-116); ASPARTATE AMNIOTRANSFERASE,AST 22 U/L (15-37); BILIRUBIN TOTAL 0.4 mg/dL (0.2-1.0); BLOOD UREA NITROGEN,BUN 5 mg/dL (7-18); CALCIUM 8.4 mg/dL (8.5-10.1); CARBON DIOXIDE,CO2 29 mmol/L (21-32); CHLORIDE,CL 103 mmol/L (100-108); CREATININE 0.7 mg/dL (0.8-1.3); EST CRCL DRUG DOSING (CG) 98.22 mL/min; ESTIMATED GFR 110 mL/min (>60); GLUCOSE RANDOM 92 mg/dL (74-106); MAGNESIUM 2.5 mg/dL (1.8-2.4); PHOSPHORUS 4.5 mg/dL (2.5-4.9); POTASSIUM,K 3.8 mmol/L (3.6-5.2); PROTEIN TOTAL,TP 5.9 g/dL (6.4-8.2); SODIUM,NA 138 mmol/L (140-148)
[2023-02-01 06:11] LABS: ANION GAP 9.8 mmol/L (5.0-14.0)
[2023-02-01] MEDS ORDERED: Thiamine 100 MG in Sodium Chloride 0.9% 100 ML IV SCH (10:00)
[2023-02-01] MEDS: Folic Acid 1 MG in Sodium Chloride 0.9% 50 ML IV SCH (10:33)
[2023-02-01] MEDS: Enoxaparin 30 MG/0.3 ML Syringe SUBCUT SCH (15:08)
[2023-02-01] MEDS: Nicotine 14 MG/24 Hr Patch TRDERM SCH (21:45)
[2023-02-02] MEDS: Dextrose 5%-Lactated Ringers 1,000 ML IV SCH ×2 (01:30→11:30)
[2023-02-02] MEDS: Piperacillin/Tazobactam/Dext 3.375 GM in Premix Bag 1 BAG IV SCH ×4 (01:42→19:52)
[2023-02-02] MEDS: Magnesium Sulfate/Water 2 GM in Premix Bag 1 BAG IV SCH ×4 (02:48→21:38)
[2023-02-02 04:52] LABS: HEMATOCRIT 32.3 % (38.4-49.7); HEMOGLOBIN 10.9 g/dL (12.9-16.9); MEAN CORPUSCULAR HEMOGLOBIN 31.6 pg (31.6-35.5); MEAN CORPUSCULAR HGB CONC 33.7 g/dL (31.6-35.5); MEAN CORPUSCULAR VOLUME 93.6 fL (81.4-99.0); RED BLOOD CELL COUNT 3.45 M/uL (4.14-5.76); WHITE BLOOD CELL COUNT,WBC 5.8 K/uL (3.2-11.0)
[2023-02-02 05:15] LABS: A/G RATIO 0.7 (1.2-2.2); ALANINE AMINOTRANSFERASE,ALT 31 U/L (12-78); ALBUMIN 2.5 g/dL (3.4-5.0); ALKALINE PHOSPHATASE 69 U/L (46-116); ASPARTATE AMNIOTRANSFERASE,AST 42 U/L (15-37); BILIRUBIN TOTAL 0.4 mg/dL (0.2-1.0); BLOOD UREA NITROGEN,BUN 3 mg/dL (7-18); CALCIUM 8.4 mg/dL (8.5-10.1); CARBON DIOXIDE,CO2 30 mmol/L (21-32); CHLORIDE,CL 103 mmol/L (100-108); CREATININE 0.7 mg/dL (0.8-1.3); EST CRCL DRUG DOSING (CG) 98.22 mL/min; ESTIMATED GFR 110 mL/min (>60); GLUCOSE RANDOM 91 mg/dL (74-106); MAGNESIUM 2.5 mg/dL (1.8-2.4); PHOSPHORUS 5.2 mg/dL (2.5-4.9); POTASSIUM,K 3.7 mmol/L (3.6-5.2); SODIUM,NA 139 mmol/L (140-148)
[2023-02-02 05:16] LABS: ANION GAP 9.7 mmol/L (5.0-14.0)
[2023-02-02] MEDS: Pantoprazole 40 MG Vial IV SCH (06:26)
[2023-02-02] MEDS ORDERED: HYDROmorphone 0.5 MG/0.5 ML Syringe IVPUSH PRN (07:26)
[2023-02-02] MEDS ORDERED: Acetaminophen Soln 160 MG/5 ML UD Cup PO SCH (07:30)
[2023-02-02] MEDS ORDERED: Folic Acid 1 MG Tab PO SCH (09:00)
[2023-02-02] MEDS ORDERED: Thiamine 100 MG Tab PO SCH (09:00)
[2023-02-02] MEDS ORDERED: Multivitamins with Iron/Calcium/Folic Acid/Minerals Tab PO SCH (09:00)
[2023-02-02] MEDS: Levothyroxine 100 MCG Tab PO SCH (09:04)
[2023-02-02] MEDS: Acetaminophen Soln 650 MG/20.3 ML UD Cup PO SCH ×3 (09:05→23:44)
[2023-02-02] MEDS: Cyclobenzaprine 10 MG Tab PO SCH ×2 (09:10→17:48)
[2023-02-02] MEDS ORDERED: Cyclobenzaprine 10 MG Tab PO SCH (14:00)
[2023-02-02] MEDS: Enoxaparin 30 MG/0.3 ML Syringe SUBCUT SCH (16:06)
[2023-02-02] MEDS: Nicotine 14 MG/24 Hr Patch TRDERM SCH (20:00)
[2023-02-03] MEDS: oxyCODONE 5 MG Tab PO PRN ×2 (00:15→07:40)
[2023-02-03] MEDS: Cyclobenzaprine 10 MG Tab PO SCH (02:20)
[2023-02-03] MEDS: Piperacillin/Tazobactam/Dext 3.375 GM in Premix Bag 1 BAG IV SCH (02:46)
[2023-02-03] MEDS: Magnesium Sulfate/Water 2 GM in Premix Bag 1 BAG IV SCH (04:03)
[2023-02-03 04:50] LABS: HEMATOCRIT 32.3 % (38.4-49.7); HEMOGLOBIN 10.7 g/dL (12.9-16.9); MEAN CORPUSCULAR HEMOGLOBIN 30.8 pg (31.6-35.5); MEAN CORPUSCULAR HGB CONC 33.1 g/dL (31.6-35.5); MEAN CORPUSCULAR VOLUME 93.1 fL (81.4-99.0); RED BLOOD CELL COUNT 3.47 M/uL (4.14-5.76); WHITE BLOOD CELL COUNT,WBC 4.8 K/uL (3.2-11.0)
[2023-02-03 05:16] LABS: A/G RATIO 0.7 (1.2-2.2); ALANINE AMINOTRANSFERASE,ALT 28 U/L (12-78); ALBUMIN 2.5 g/dL (3.4-5.0); ALKALINE PHOSPHATASE 69 U/L (46-116); ANION GAP 7.7 mmol/L (5.0-14.0); ASPARTATE AMNIOTRANSFERASE,AST 33 U/L (15-37); BILIRUBIN TOTAL 0.3 mg/dL (0.2-1.0); BLOOD UREA NITROGEN,BUN 2 mg/dL (7-18); CALCIUM 8.3 mg/dL (8.5-10.1); CARBON DIOXIDE,CO2 30 mmol/L (21-32); CHLORIDE,CL 103 mmol/L (100-108); CREATININE 0.7 mg/dL (0.8-1.3); EST CRCL DRUG DOSING (CG) 98.22 mL/min; ESTIMATED GFR 110 mL/min (>60); GLUCOSE RANDOM 87 mg/dL (74-106); MAGNESIUM 2.2 mg/dL (1.8-2.4); POTASSIUM,K 3.9 mmol/L (3.6-5.2); PROTEIN TOTAL,TP 5.9 g/dL (6.4-8.2); SODIUM,NA 141 mmol/L (140-148)
[2023-02-03 05:25] LABS: PHOSPHORUS 4.6 mg/dL (2.5-4.9)
[2023-02-03] MEDS: Pantoprazole 40 MG Vial IV SCH (06:09)
[2023-02-03 06:11] VITALS: BP 135/79; PULSE 51
[2023-02-03] MEDS: Levothyroxine 100 MCG Tab PO SCH (07:41)
[2023-02-03] MEDS: Acetaminophen Soln 650 MG/20.3 ML UD Cup PO SCH (07:41)
[2023-02-03] MEDS ORDERED: Amoxicillin/Clavulanate K 875-125 MG Tab PO SCH (08:00)
[2023-02-03] MEDS ORDERED: Pantoprazole 40 MG Tab.CR PO SCH (21:00)
== END 2023-02-03 09:22 | disposition home or self-care (01) | DRG 329 ==
LOC: JP.ED 02:50 → JP.SDS 05:43 → JP.MS 10:04
PROVIDERS: ADMIT Student in an Organized Health Care Education/Training Program; ATTEND Student in an Organized Health Care Education/Training Program
PROC: 0WPF0JZ Removal of Synthetic Substitute from Abdominal Wall, Open Approach (ICD-10-PCS; 2023-01-30)
PROC: 0DJ08ZZ Inspection of Upper Intestinal Tract, Via Natural or Artificial Opening Endoscopic (ICD-10-PCS; 2023-01-30)
PROC: 0D1 Gastrointestinal System, Bypass (ICD-10-PCS; principal; 2023-01-30 06:00)
DX: K91.89 Other postprocedural complications and disorders of digestive system (principal); K63.1 Perforation of intestine (nontraumatic); K56.600 Partial intestinal obstruction, unspecified as to cause; K21.9 Gastro-esophageal reflux disease without esophagitis; M54.9 Dorsalgia, unspecified; G89.29 Other chronic pain; G43.909 Migraine, unspecified, not intractable, without status migrainosus; E11.9 Type 2 diabetes mellitus without complications; E03.9 Hypothyroidism, unspecified; F17.210 Nicotine dependence, cigarettes, uncomplicated; I10 Essential (primary) hypertension; Z11.52 Encounter for screening for COVID-19; Z88.8 Allergy status to other drugs, medicaments and biological substances; Z98.890 Other specified postprocedural states; Z79.899 Other long term (current) drug therapy; Z87.81 Personal history of (healed) traumatic fracture
CPT/HCPCS: 36415; 51702; 74177; 74240; 74240-26; 80053; 83605; 83690; 83735; 84100; 85025; 85027; 93005; 93010; 96361; 96365; 96366; 96367; 96375; 99285; 99285-25; A9270-GY; C9113; J0131; J0330; J1100; J1170; J1650; J2185; J2405; J2543; J2704; J2710; J3010; J3411; J3475; J3490; J7030; J7120; J7121; Q9967; U0002